=== PATIENT | male | born 1950 | race Caucasian/White ===

== ENCOUNTER 2017-08-31 20:30 | Emergency (ER) | payer OTHER, MEDICARE ==
[~2017-08-31] VITALS: Ht 180.3 cm; Wt 85.0 kg
[2017-08-31 20:31] VITALS: BP 125/78; PULSE 86; RESP 16; TEMP 98; O2SAT 98
[2017-08-31] MEDS ORDERED: MIRT1TAB PO (21:57)
[2017-08-31] MEDS ORDERED: VITACAP7 PO (22:00)
[2017-08-31] MEDS ORDERED: MULTTAB67 PO (22:00)
[2017-08-31] MEDS ORDERED: FISHCAP4 PO (22:00)
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
[2017-08-31] MEDS ORDERED: IBUP1TAB7 PO (22:53)
[2017-08-31] MEDS ORDERED: BACL10TA PO (22:53)
[2017-08-31] MEDS ORDERED: KETOROLAC TROMETHAMINE 60 MG/2 ML (IM) VIAL IM ONE (23:00)
== END 2017-08-31 23:37 | disposition home or self-care (01) ==
LOC: NEPD 20:30
DX: S16.1XXA Strain of muscle, fascia and tendon at neck level, initial encounter (principal); S39.012A Strain of muscle, fascia and tendon of lower back, initial encounter; M50.322 Other cervical disc degeneration at C5-C6 level; F17.220 Nicotine dependence, chewing tobacco, uncomplicated; V43.52XA Car driver injured in collision with other type car in traffic accident, initial encounter; Z87.19 Personal history of other diseases of the digestive system; Z79.899 Other long term (current) drug therapy
CPT/HCPCS: 72125; 96372; 99285; J1885